=== PATIENT | female | born 1970 | race Caucasian/White ===

== ENCOUNTER 2020-12-01 17:30 | Emergency (ER) | payer BC ==
[~2020-12-01] VITALS: Ht 165.1 cm; Wt 60.5 kg
[~2020-12-01 17:30] MED LIST: ADVAIR 250-501 EACH; AMITRIPTYLINE H50 MG PO; ANTIVERT25 MG PO; CARVEDILOL6.25 MG PO; GABAPENTIN300 MG PO; METOPROLOL SUCC25 MG PO; NORCO 5-325 TA1 EACH PO; PERCOCET 5-3251 EACH PO; PROAIR RESPICL90 MCG; SOMA350 MG PO
[2020-12-01] MEDS ORDERED: PROCHLORPERAZINE5 MG PO (20:04)
== END 2020-12-01 20:36 | disposition home or self-care (01) ==
LOC: ED 17:30
DX: U07.1 COVID-19 (principal); G43.909 Migraine, unspecified, not intractable, without status migrainosus; I48.91 Unspecified atrial fibrillation; F17.200 Nicotine dependence, unspecified, uncomplicated
CPT/HCPCS: 96374; 96375; 99283-25; J0780; J1100; J1200; J1885; J7030

== ENCOUNTER 2021-03-11 11:25 | Emergency (ER) | payer OTHER ==
[~2021-03-11] VITALS: Ht 165.1 cm; Wt 60.5 kg
[~2021-03-11 11:25] MED LIST changes: +PROCHLORPERAZINE5 MG PO
[2021-03-11] MEDS ORDERED: PREDNISONE20 MG PO (12:46)
[2021-03-11] MEDS ORDERED: CYCLOBENZAPRINE10 MG PO (12:46)
== END 2021-03-11 13:10 | disposition home or self-care (01) ==
LOC: ED 11:25
DX: M54.12 Radiculopathy, cervical region (principal); F17.200 Nicotine dependence, unspecified, uncomplicated
CPT/HCPCS: 72040; 99283-25

== ENCOUNTER 2022-07-07 10:50 | Emergency (ER) | payer OTHER ==
[~2022-07-07] VITALS: Ht 165.1 cm; Wt 68.3 kg
[~2022-07-07 10:50] MED LIST changes: +CYCLOBENZAPRINE10 MG PO; +PREDNISONE20 MG PO
--- OUTSIDE RECORDS SUMMARY | 2022-07-07 10:52 | XMS ---
PreManage Notification: JV HERRERA Security Industrial Mechanic Events 1 event(s) in the past 18 months Most recent security events: Elopement at [facility] 09/04/2021 15:06 - Other Details: PATIENT LWBS CRITERIA MET - PDMP CARE PROVIDERS There are no care providers on record at this time. Lalit has no Care Guidelines for this patient. [place] VISIT COUNT (12 MO.) 3 [facility] TOTAL 3 NOTE: Visits indicate total known visits. ED/C VISIT TRACKING (12 MO.) 07/07/2022 10:51 [facility] [place] TYPE: Emergency COMPLAINT: - DENTAL PROBLEM 09/05/2021 11:23 [facility] [place] TYPE: Emergency COMPLAINT: - JOINT PAIN, EYE BURNING, FEVER, SOB, HEADACHE 09/04/2021 15:06 [facility] [place] TYPE: Emergency COMPLAINT: - FEVER, CHILLS, HEADACHE, BODY ACHES, EYES BURNING INPATIENT VISIT TRACKING (12 MO.) No inpatient visits to display in this time frame [email or web address]
[2022-07-07] MEDS ORDERED: CLEOCIN HCL300 MG PO (11:13)
== END 2022-07-07 11:24 | disposition home or self-care (01) ==
LOC: ED 10:50
DX: K04.7 Periapical abscess without sinus (principal); I48.91 Unspecified atrial fibrillation; F17.200 Nicotine dependence, unspecified, uncomplicated; Z79.899 Other long term (current) drug therapy
CPT/HCPCS: 99282

== ENCOUNTER 2024-10-04 12:44 | Emergency (ER) | payer OTHER ==
[~2024-10-04] VITALS: Ht 165.1 cm; Wt 64.0 kg
[~2024-10-04 12:44] MED LIST changes: +CLEOCIN HCL300 MG PO
[2024-10-04] MEDS ORDERED: SODIUM CHLORIDE 0.9% 1,000 ML IV ONE (13:00)
[2024-10-04] MEDS ORDERED: ondansetron HCL 4 MG/2 ML VIAL IV ONE (13:00)
[2024-10-04] MEDS ORDERED: HYDROmorphone HCL 1 MG/ML SYR IV PRN (13:00)
[2024-10-04 13:05] LABS: BASOPHILS 3.9 % (0-2); EOSINOPHILS 0.1 % (0-6); HEMOGLOBIN 14.5 g/dL (12.0-18.0); LYMPHOCYTES 29.3 % (24-44); MCH 33.6 (27-36); MCHC 33.7 g/dl (30-36); MCV 99.6 fl (81-99); MONOCYTES 6.1 % (0-12); NEUTROPHILS 60.6 % (39-80); PLATELET COUNT 311 K/uL (140-440); RBC 4.32 M/ul (4.3-5.7); RDW 13.2 (10.5-15.0)
[2024-10-04 13:25] LABS: ALBUMIN 3.1 g/dL (3.4-5.0); ANION GAP 18.1 (7-21); BILIRUBIN, TOTAL 0.3 mg/dL (0.2-1.0); BUN/CREATININE RATIO 19.67 (6.0-28.6); CALCIUM 8.4 mg/dL (8.5-10.1); CREATININE, SERUM 0.61 mg/dL (0.55-1.02); MAGNESIUM 1.6 mg/dL (1.8-2.4); POTASSIUM 4.1 mmol/L (3.5-5.1); PROTEIN, TOTAL 6.2 g/dL (6.4-8.2)
[2024-10-04 13:40] LABS: BILIRUBIN, URINE NEGATIVE (negative); BLOOD/HGB, URINE TRACE-I (Negative); KETONE, URINE NEGATIVE (Negative); LEUK ESTERASE, URINE NEGATIVE (negative); NITRITE, URINE NEGATIVE (negative)
[2024-10-04 13:51] LABS: BACTERIA, URINE RARE /hpf (negative); CASTS, URINE NONE SEEN \\lpf; COLLECTION TYPE, URINE CLEAN CATCH; CRYSTALS, URINE NONE SEEN (0-1+); EPITHELIAL CELLS, URINE 0 /lpf (0-1+); RED BLOOD CELLS, URINE 0-1 /hpf (0-5); REFLEX CULTURE, URINE No (No); WHITE BLOOD CELLS, URINE 0-1 /HPF (0-5)
[2024-10-04] MEDS ORDERED: ONDANSETRON ODT8 MG PO (14:07)
[2024-10-04] MEDS ORDERED: LOMOTIL TABLET1 EACH PO (14:07)
[2024-10-04] MEDS ORDERED: MAGNESIUM OXIDE 400 MG TABLET PO ONE (14:15)
[2024-10-04] MEDS ORDERED: DIPHENOXYLATE/ATROPINE 1 EA TAB PO ONE (14:15)
[2024-10-04 14:37] VITALS: BP 129/74
== END 2024-10-04 14:38 | disposition home or self-care (01) ==
LOC: ED 12:44
PROVIDERS: Emergency Medicine
DX: K52.9 Noninfective gastroenteritis and colitis, unspecified (principal); E83.42 Hypomagnesemia; I48.91 Unspecified atrial fibrillation; F17.200 Nicotine dependence, unspecified, uncomplicated
CPT/HCPCS: 36415; 74177; 80053; 81001; 83690; 83735; 85025; 96375; 99284-25; J1171; J2405; J7030; Q9967

== ENCOUNTER 2024-10-12 14:33 | Emergency (ER) | payer OTHER ==
[~2024-10-12] VITALS: Ht 165.1 cm; Wt 62.6 kg
--- NOTE | ~2024-10-12 | EKG ---
[facility] [address] [facility], [place] [address] Draft EK completed, results pending confirmation PATIENT NAME: JV HERRERA Electrocardiogram DATE OF : 68 PHYSICIAN: PRELIMINARY REPORT #: [id number] REPORT IS CONFIDENTIAL AND NOT TO BE RELEASED WITHOUT AUTHORIZATION
[~2024-10-12 14:33] MED LIST changes: +LOMOTIL TABLET1 EACH PO; +ONDANSETRON ODT8 MG PO
--- OUTSIDE RECORDS SUMMARY | 2024-10-12 14:40 | XMS ---
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 E.D. VISIT COUNT (12 MO.) [address] [facility] TOTAL 3 NOTE: Visits indicate total known visits. ED/UCC VISIT TRACKING (12 MO.) 10/12/2024 14:34 [facility] [place] TYPE: Emergency COMPLAINT: - HEART RATE ISSUE 10/04/2024 12:45 [facility] [place] TYPE: Emergency COMPLAINT: - ABDOMINAL PAIN DIAGNOSES: - Hypomagnesemia - Nicotine dependence, unspecified, uncomplicated - Noninfective gastroenteritis and colitis, unspecified - Unspecified atrial fibrillation - Upper abdominal pain, unspecified 03/25/2024 13:48 [facility] [place] TYPE: Emergency COMPLAINT: - LOWER BACK PAIN INPATIENT VISIT TRACKING (12 MO.) No inpatient visits to display in this time frame [email or web address]
[2024-10-12 15:01] LABS: BASOPHILS 0.9 % (0-2); HEMATOCRIT 43.3 % (35.0-50.0); HEMOGLOBIN 15.1 g/dL (12.0-18.0); LYMPHOCYTES 40.9 % (24-44); MCH 34.4 (27-36); MCHC 34.8 g/dl (30-36); MCV 98.8 fl (81-99); MONOCYTES 13.6 % (0-12); NEUTROPHILS 44.6 % (39-80); PLATELET COUNT 172 K/uL (140-440); RBC 4.38 M/ul (4.3-5.7); RDW 13.8 (10.5-15.0)
[2024-10-12] MEDS ORDERED: SODIUM CHLORIDE 0.9% 1,000 ML IV PRN (15:15)
[2024-10-12] MEDS ORDERED: dilTIAZem HCL 25 MG/5 ML VIAL IV ONE (15:15)
[2024-10-12 15:25] LABS: ALBUMIN 3.1 g/dL (3.4-5.0); ANION GAP 14.4 (7-21); BILIRUBIN, TOTAL 0.2 mg/dL (0.2-1.0); BUN/CREATININE RATIO 11.9 (6.0-28.6); CALCIUM 8.6 mg/dL (8.5-10.1); CREATININE, SERUM 0.84 mg/dL (0.55-1.02); MAGNESIUM 1.7 mg/dL (1.8-2.4); POTASSIUM 3.4 mmol/L (3.5-5.1); PROTEIN, TOTAL 6.2 g/dL (6.4-8.2)
[2024-10-12] MEDS ORDERED: CEFTRIAXONE SODIUM 1 GM VIAL IV ONE (16:43)
[2024-10-12] MEDS ORDERED: CEFTRIAXONE SODIUM 1 GM in SODIUM CHLORIDE 0.9% 100 ML IV ONE (16:45)
[2024-10-12] MEDS ORDERED: AZITHROMYCIN 500 MG in DEXTROSE 5% 250 ML IV ONE (16:45)
[2024-10-12] MEDS ORDERED: DILTIAZEM 24HR180 M1 PO (16:50)
[2024-10-12] MEDS ORDERED: ZITHROMAX250 MG PO (16:50)
[2024-10-12] MEDS ORDERED: diphenhydrAMINE HCL 50 MG CAP PO ONE (18:15)
[2024-10-12 18:53] VITALS: BP 126/87
--- NOTE | 2024-10-13 16:31 | EKG ---
[facility] [address] [facility] [place] [address] Signed Atrial fibrillation with rapid ventricular response Abnormal ECG No previous ECGs available Confirmed by Robert Loomis MD () on 10/13/2024 4:30:58 PM Electronically Signed By: ROBERT LOOMIS MD 10/13/24 163 PATIENT NAME: JV HERRERA Electrocardiogram DATE OF : 68 PHYSICIAN: ROBERT LOOMIS MD REPORT #: [id number] REPORT IS CONFIDENTIAL AND NOT TO BE RELEASED WITHOUT AUTHORIZATION
== END 2024-10-12 18:57 | disposition home or self-care (01) ==
LOC: ED 14:33
PROVIDERS: Emergency Medicine
DX: I48.91 Unspecified atrial fibrillation (principal); J18.9 Pneumonia, unspecified organism; F17.200 Nicotine dependence, unspecified, uncomplicated; Z79.899 Other long term (current) drug therapy
CPT/HCPCS: 36415; 71260; 80053; 83735; 84484; 85025; 93005; 93010; 96361; 96367; 99285-25; 99406; J0456; J7030; J7060; Q0163; Q9967

== ENCOUNTER 2025-04-06 03:06 | Emergency (ER) | payer OTHER ==
[~2025-04-06] VITALS: Ht 165.1 cm; Wt 62.8 kg
[~2025-04-06 03:06] MED LIST changes: +DILTIAZEM 24HR180 M1 PO; +ZITHROMAX250 MG PO
[2025-04-06] MEDS ORDERED: AMOXICILLIN500 MG (03:29)
[2025-04-06] MEDS ORDERED: ASPIRIN81 MG PO (03:30)
[2025-04-06 04:01] VITALS: BP 129/85
--- NOTE | 2025-04-06 09:07 | EKG ---
[facility] [address] [place] [address] Signed Sinus bradycardia Otherwise normal ECG When compared with ECG of 12-OCT-2024 16:35, Sinus rhythm has replaced Atrial fibrillation Vent. rate has decreased BY 26 BPM Confirmed by Lexus Sosa MD ([id number]) on 04/06/2025 9:06:56 AM Electronically Signed By: LEXUS SOSA MD 04/06/25 0907 PATIENT NAME: JV HERRERA Electrocardiogram DATE OF : 68 PHYSICIAN: LEXUS SOSA MD REPORT #: [id number] REPORT IS CONFIDENTIAL AND NOT TO BE RELEASED WITHOUT AUTHORIZATION
== END 2025-04-06 04:01 | disposition home or self-care (01) ==
LOC: ED 03:06
DX: R00.2 Palpitations (principal); F17.200 Nicotine dependence, unspecified, uncomplicated; Z79.82 Long term (current) use of aspirin
CPT/HCPCS: 93005; 93010; 99285